=== PATIENT | female | born 1965 | race Two or more races ===

== ENCOUNTER → 2021-08-27 | Outpatient (CLI) | payer OTHER ==
[~2021-08-27] MED LIST: AMLO5 PO; ATOR20 PO; CYCL10 PO; HYDACE5 PO; Humalog100 UNIT/1; INSULANI SC; LISI20 PO; METF500 PO; METO50 PO; ROSU10TA PO
== END | disposition home or self-care (01) ==
LOC: LAB 17:28 → LAB SHORT 17:28
DX: E11.65 Type 2 diabetes mellitus with hyperglycemia (principal)
CPT/HCPCS: 82043

== ENCOUNTER → 2024-07-31 | Outpatient (CLI) | payer OTHER ==
[2024-07-31 20:09] LABS: Creatinine, Urine Random 45.4 mg/dL (27.00-270.00)
[2024-07-31 20:12] LABS: Microalb/Creat Ratio UR, Rand 27.092 mg/g (0.000-30.000); Microalbumin, Random Urine 12.3 mg/L (0.000-20.000)
== END ==
LOC: LAB SHORT 17:40 → LAB 17:40
PROVIDERS: Hospitalist
DX: E11.65 Type 2 diabetes mellitus with hyperglycemia (principal)
CPT/HCPCS: 82043; 82570

== ENCOUNTER → 2025-05-16 | Outpatient (CLI) | payer OTHER ==
[2025-05-16 19:41] LABS: Creatinine, Urine Random 81.5 mg/dL (27.00-270.00); Microalb/Creat Ratio UR, Rand 35.215 mg/g (0.000-30.000); Microalbumin, Random Urine 28.7 mg/L (0.000-20.000)
== END ==
LOC: LAB 17:15 → LAB SHORT 17:15
PROVIDERS: Hospitalist
DX: E11.69 Type 2 diabetes mellitus with other specified complication (principal)
CPT/HCPCS: 82043; 82570